=== PATIENT | female | born 1945 | race Caucasian/White ===

== ENCOUNTER 2022-11-06 19:07 | Emergency (ER) | payer MEDICARE, OTHER ==
[2022-11-06 20:04] VITALS: RESP 17
[2022-11-06 21:05] VITALS: BP 154/72; PULSE 66; TEMP 96.2; O2SAT 96
[2022-11-06 21:18] LABS: Appearance Clear (Clear); Bacteria None Seen /HPF (None Seen); Bilirubin Negative (Negative); Blood Negative (Negative); Epithelial Cells None Seen /HPF (None Seen); Glucose, Urine Negative (Negative); Hyaline Casts NONE SEEN /LPF (0-2); Ketones Negative (Negative); Leukocyte Esterase Moderate (Negative); Nitrite Negative (Negative); Ph 5.5 (4.6-8.0); Protein,Urine Dip Negative (Negative); Specific Gravity 1.015 (1.005-1.030); Urobilinogen 0.2 mg/dL (0.2)
[2022-11-06 21:19] LABS: ADD URINE CULTURE? YES (NO)
[2022-11-06] MEDS ORDERED: KEFLEX 500 MG PO ONE (21:30)
--- NOTE | 2022-11-06 21:35 | ERPHSYRPT ---
- History of Present Illness Time Seen by Provider: 11/06/22 19:14 Source: patient Exam Limitations: no limitations Patient Subjective Stated Complaint: pt states she is concerned that she may have a yeast infection. she has buring and itching of vaginal area and swelling. Triage Nursing Assessment: pt states she has been having vaginal itching and buringing. buringin pain with urination and swelling in vaginal area. respirations nonlabored. skin warm and dry. pt ambualtes into roomw ith steady gait noted. Physician History: 77 years old female with history of hypertension presented to the ER with 1 week history of progressively increasing burning with urination and irritation of the vulvar skin. Patient reports it pfeiffer when touches the skin around. She was seen outpatient and has negative candidal swab. Patient denies any fever or chills. No suprapubic pain. Does report mild increased urinary frequency. No flank pain. Timing/Duration: week(s) (1), constant, gradual onset, worse Quality: burning, sharpness Onset Location: vaginal, vulvar pain Pain Radiation: none Severity of Pain-Max: moderate Severity of Pain-Current: mild Sexual intercourse history: non-contributory Modifying Factors: Worsens With: urinating Allergies/Adverse Reactions: fluconazole [From Diflucan] Allergy (Intermediate, Verified 11/06/22 19:47) Rash Home Medications: Amlodipine Besylate 5 mg [Norvasc 5 mg] 5 mg PO DAILY 11/06/22 [History] Losartan Potassium 50 mg [Cozaar 50 MG] 50 mg PO DAILY 11/06/22 [History] Hx Tetanus, Diphtheria Vaccination/Date Given: No (2009) Hx Influenza Vaccination/Date Given: Yes Hx Pneumococcal Vaccination/Date Given: No Travel Risk - International Travel Have you traveled outside of the country in past 3 weeks: No - Coronavirus Screening Are you exhibiting any of the following symptoms?: No Close contact with a COVID-19 positive Pt in past 14-21 Days: No - Vaccine Status Have you recieved a Covid-19 vaccination: Yes [employer]: Moderna - Vaccination Dates Date of 2cond Vaccination (if applicable): 2020 - Review of Systems Constitutional: No Symptoms Ears, Nose, & Throat: No Symptoms Respiratory: No Symptoms Cardiac: No Symptoms Abdominal/Gastrointestinal: No Symptoms Genitourinary Symptoms: Dysuria, Frequency, Vaginal Itching Musculoskeletal: No Symptoms Neurological: No Symptoms Hematologic/Lymphatic: No Symptoms Immunological/Allergic: No Symptoms - Past Medical History Cardiac History: Hypertension - Past Surgical History Past Surgical History: No - Social History Smoking Status: Former smoker Exposure to second hand smoke: No Drug Use: none Patient Lives Alone: Yes - Nursing Vital Signs Nursing Vital Signs: Initial Vital Signs Temperature 98.7 F 11/06/22 19:29 Respiratory Rate 16 11/06/22 19:29 Blood Pressure 167/74 11/06/22 19:29 O2 Sat by Pulse Oximetry 96 11/06/22 19:29 Pain Scale Pain Intensity 0 - Physical Exam General Appearance: no apparent distress, alert Eye Exam: PERRL/EOMI Ears, Nose, Throat Exam: normal ENT inspection Neck Exam: normal inspection, full range of motion Respiratory Exam: normal breath sounds, lungs clear Cardiovascular Exam: regular rate/rhythm, normal heart sounds Gastrointestinal/Abdomen Exam: soft, normal bowel sounds, No tenderness Pelvic Exam: other (Inflamed vulvar skin with few scattered beefy red spots on the left side. Mild tenderness to touch.) Extremity Exam: normal inspection Neurologic Exam: alert, oriented x 3, cooperative Skin Exam: normal color SpO2 Interpretation: normal SpO2: 96 O2 Delivery: Room Air Ordered Tests: Active Orders 24 hr Category Date Time Status CULTURE,URINE Stat Lab 11/06/22 19:55 Received UA W/RFX UR CULTURE Stat Lab 11/06/22 19:55 Completed Medication Summary Generic Name Dose Route Start Last Admin Trade Name Freq PRN Reason Stop Dose Admin Cephalexin HCl 500 mg 11/06/22 21:30 Cephalexin 500 Mg Capsule PO 11/06/22 21:31 STAT ONE Nystatin/Triamcinolone Acetonide 30 gm 11/06/22 22:00 Nystatin/Triamcin 15 Gm Oint TP 12/06/22 21:59 BID [facility] Triamcinolone Acetonide 15 gm 11/06/22 22:00 Triamcinolone Acetonide 0.1% 15 Gm Cream TP 12/06/22 21:59 BID [facility] Lab/Rad Data: Laboratory Results 11/06/22 Range/Units 19:55 Urine Color Yellow (Yellow) Urine Appearance Clear (Clear) Urine pH 5.5 (4.6-8.0) Ur Specific [place] 1.015 (1.005-1.030) Urine Protein Negative (Negative) Urine Glucose (UA) Negative (Negative) mg/dL Urine Ketones Negative (Negative) Urine Blood Negative (Negative) Urine Nitrite Negative (Negative) Urine Bilirubin Negative (Negative) Urine Urobilinogen 0.2 (0.2) mg/dL Ur Leukocyte Esterase Moderate A (Negative) U Hyaline Cast (Auto) NONE SEEN (0-2) /LPF Urine Microscopic RBC 11-20 A (0-5) /HPF Urine Microscopic WBC 6-10 A (0-5) /HPF Ur Epithelial Cells None Seen (None Seen) /HPF Urine Bacteria None Seen (None Seen) /HPF Urine Culture Reflexed YES (NO) - Progress Progress: unchanged Air Movement: good Progress Note: 11/06/22 21:34 77 years old female with history of hypertension presented to the ER with 1 week history of progressively increasing burning with urination and irritation of the vulvar skin. Patient reports it pfeiffer when touches the skin around. She was seen outpatient and has negative candidal swab. Patient denies any fever or chills. No suprapubic pain. Does report mild increased urinary frequency. No flank pain. I believe patient has more pain secondary to raw skin. I think it started as intertrigo with some secondary bacterial infection as well. I would treat her with oral antibiotics Keflex along with triamcinolone/nystatin ointment. Recommended to keep the area clean and dry. She does have UTI and Keflex would cover for it. Recommended outpatient follow-up. Blood Culture(s) Obtained: No Antibiotics given: Yes Counseled pt/family regarding: lab results, diagnosis, need for follow-up Medical Desision Making - Risk of complications The pt has a mod risk of morbidity or mortality based on: Need for prescription drug management - Departure Departure Disposition: Home Clinical Impression: Acute UTI, Swelling of vulva Condition: Stable Critical Care Time: No Referrals: OTTONIEL GUPTA MD [Primary Care Provider] - Follow up with PCP 1 day Instructions: Urinary Tract Infection, Adult (DC) Additional Instructions: Take Tylenol as needed for pain. Keep the area clean and dry. Apply nystatin/times and along the ointment twice a day. Follow-up with primary care for reevaluation. Return to ER for any worsening. Prescriptions: Cephalexin Mh 500 mg [Keflex 500 mg] 500 mg PO TID #21 cap
[2022-11-06] MEDS ORDERED: [UNRECOGNIZED DRUG - OTHER] TP SCH (22:00)
[2022-11-06] MEDS ORDERED: KENALOG 0.1% CREAM 15 GM TP SCH (22:00)
[2022-11-06] MEDS ORDERED: KEFLEX 500 MG ONE (22:02)
== END 2022-11-06 22:19 | disposition home or self-care (01) ==
LOC: ED 19:07
DX: N39.0 Urinary tract infection, site not specified (principal); N76.2 Acute vulvitis; R30.0 Dysuria; I10 Essential (primary) hypertension; Z79.899 Other long term (current) drug therapy
CPT/HCPCS: 81001; 87077; 87086; 87186; 99283; A9270-GY

== ENCOUNTER 2022-11-08 10:28 | Inpatient (IN) | payer MEDICARE, OTHER ==
--- NOTE | 2022-11-08 10:59 | ERPHSYRPT ---
- History of Present Illness Time Seen by Provider: 11/08/22 10:45 Source: patient Exam Limitations: no limitations Patient Subjective Stated Complaint: C/O rash with itching to silvia area that started last Thursday and has been progressively getting worse Triage Nursing Assessment: Patient ambulated back to ER without difficulties. She is alert and oriented. No SOB. Tachycardic. Denies pain. Does not appear anxious. Red, swollen rash noted to silvia area and lower abdomen. Patient indicates rash itches. Physician History: This is a 77-year-old white female patient of Dr. Gupta who was seen here on 11/07/2022 and treated for urinary tract infection and a yeast infection of the perineal/suprapubic area. Patient was complaining of dysuria, frequency and vaginal itching. Her symptoms were worse despite a prescription for Keflex and topical nystatin and triamcinolone. When she got up this morning she was planning on coming to the emergency department because of the persistent/worsening of her symptoms. In addition to those symptoms this morning she noticed her heart racing. She has no chest pain. She has no shortness of breath. The twelve-lead EKG upon her admission into the emergency department showed heart rate of 141 bpm and read out as atrial fibrillation. However, I am not convinced it is atrial fibrillation but more of a sinus tachycardia. We will work her up for both candidal perineal infection and her tachycardia/atrial fibrillation findings. She has never had anything like this before. She does not see a cognos consultant. She is a former smoker of cigarettes and has a history of hypertension. Timing/Duration: today Severity: mild (To moderate) Modifying Factors: Improves With: nothing Associated Symptoms: denies symptoms, other (Does sense palpitations) Allergies/Adverse Reactions: fluconazole [From Diflucan] Allergy (Intermediate, Verified 11/08/22 10:34) Rash Home Medications: Amlodipine Besylate 5 mg [Norvasc 5 mg] 5 mg PO DAILY 11/06/22 [History] Losartan Potassium 50 mg [Cozaar 50 MG] 50 mg PO DAILY 11/06/22 [History] Hx Tetanus, Diphtheria Vaccination/Date Given: Yes Hx Influenza Vaccination/Date Given: Yes Hx Pneumococcal Vaccination/Date Given: No Immunizations Up to Date: Yes Travel Risk - International Travel Have you traveled outside of the country in past 3 weeks: No - Coronavirus Screening Are you exhibiting any of the following symptoms?: No Close contact with a COVID-19 positive Pt in past 14-21 Days: No - Vaccine Status Have you recieved a Covid-19 vaccination: Yes [employer]: Moderna - Vaccination Dates Date of 2cond Vaccination (if applicable): 2020 - Review of Systems Constitutional: No Symptoms Eyes: No Symptoms Ears, Nose, & Throat: No Symptoms Respiratory: No Symptoms Cardiac: Palpitations Abdominal/Gastrointestinal: No Symptoms Genitourinary Symptoms: No Symptoms Musculoskeletal: No Symptoms Skin: Rash (Pubic/perineal region) Neurological: No Symptoms Psychological: Anxiety Endocrine: No Symptoms Hematologic/Lymphatic: No Symptoms Immunological/Allergic: No Symptoms All Other Systems: Reviewed and Negative - Past Medical History Pertinent Past Medical History: Yes Cardiac History: Hypertension - Past Surgical History Past Surgical History: No - Social History Smoking Status: Former smoker Exposure to second hand smoke: No Drug Use: none Patient Lives Alone: Yes - Nursing Vital Signs Nursing Vital Signs: Initial Vital Signs Temperature 97.7 F 11/08/22 10:35 Pulse Rate 114 H 11/08/22 10:35 Respiratory Rate 18 11/08/22 10:35 Blood Pressure 153/118 11/08/22 10:35 O2 Sat by Pulse Oximetry 97 11/08/22 10:35 Pain Scale Pain Intensity 0 - Physical Exam General Appearance: no apparent distress, alert, anxiety, obese Eye Exam: PERRL/EOMI, eyes nml inspection Ears, Nose, Throat Exam: normal ENT inspection, moist mucous membranes Neck Exam: normal inspection, non-tender, supple, full range of motion Respiratory Exam: normal breath sounds, lungs clear, No chest tenderness, No respiratory distress Cardiovascular Exam: regular rate/rhythm, normal heart sounds, normal peripheral pulses Pelvic Exam: not done Rectal Exam: not done Back Exam: normal inspection, normal range of motion, No CVA tenderness, No vertebral tenderness Extremity Exam: normal inspection, normal range of motion, pelvis stable Neurologic Exam: alert, oriented x 3, cooperative, 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 Outer vaginal area and perineal area) Lymphatic Exam: No adenopathy SpO2 Interpretation: normal SpO2: 97 O2 Delivery: Room Air - Course Nursing assessment & vital signs reviewed: Yes EKG Interpreted by Me: RATE (141), Sinus Tach, NORMAL AXIS, NORMAL INTERVALS, NORMAL QRS, Other (The computer readout states that the patient has atrial fibrillation. I am not convinced it is atrial fibrillation but more of a sinus tachycardia. There is no evidence of any acute ischemic changes on today's twelve-lead EKG.) Ordered Tests: Active Orders 24 hr Category Date Time Status EKG-ER Only STAT Care 11/08/22 11:01 Active IV Insertion STAT Care 11/08/22 11:01 Active IV Insertion-2nd Peripheral STAT Care 11/08/22 13:19 Active Pulse Oximetry (ED) STAT Care 11/08/22 11:01 Active CHEST WITH CONTRAST [CT] Stat Exams 11/08/22 11:42 Completed CBC W DIFF Stat Lab 11/08/22 11:09 Completed CMP Stat Lab 11/08/22 11:09 Completed D-DIMER QUANTITATIVE Stat Lab 11/08/22 11:09 Completed MAGNESIUM Stat Lab 11/08/22 11:09 Completed NT PRO BNPII Stat Lab 11/08/22 11:09 Completed TROPONIN Q4H Lab 11/08/22 11:09 Completed TROPONIN Q4H Lab 11/08/22 15:15 Ordered TROPONIN Q4H Lab 11/08/22 19:15 Ordered UA W/RFX UR CULTURE Stat Lab 11/08/22 Completed Transfer Order Routine Transfer 11/08/22 Ordered Medication Summary Generic Name Dose Route Start Last Admin Trade Name Freq PRN Reason Stop Dose Admin Diltiazem HCl 100 mls @ 5 mls/hr 11/08/22 13:03 11/08/22 13:07 Cardizem Drip 100 Mg/100 Ml D5w IV 12/08/22 13:02 5 mg/hr .Q20H PRN 5 mls/hr HEART RATE/ A-FIB Administration Protocol 5 MG/HR Discontinued Medications Generic Name Dose Route Start Last Admin Trade Name Freq PRN Reason Stop Dose Admin Diltiazem HCl 15 mg 11/08/22 11:01 11/08/22 11:07 Diltiazem Hcl Iv 5 Mg/Ml Vial IV 11/08/22 11:02 15 mg STAT ONE Administration Diltiazem HCl Confirm 11/08/22 11:06 Diltiazem Hcl Iv 5 Mg/Ml Vial Administered 11/08/22 11:07 Dose 50 mg IV .STK-MED ONE Sodium Chloride 500 mls @ 500 mls/hr 11/08/22 11:41 11/08/22 12:54 Sodium Chloride 0.9% 500 Ml IV 11/08/22 12:40 Infused .Q1H ONE Infusion Sodium Chloride Confirm 11/08/22 11:48 Sodium Chloride 0.9% 500 Ml Administered 11/08/22 11:49 Dose 500 mls @ ud IV .STK-MED ONE Nystatin 1 gm 11/08/22 11:04 11/08/22 11:20 Nystatin 15 Gm Powder TP 11/08/22 11:05 1 gm STAT ONE Administration Lab/Rad Data: Laboratory Result Diagrams 11/08/22 11:09 11/08/22 11:09 Laboratory Results 11/08/22 11/08/22 11/08/22 Range/Units Unknown 11:09 11:09 WBC (4.0-10.5) x10^3/uL RBC (4.1-5.4) x10^6/uL Hgb (12.0-16.0) g/dL Hct (35-47) % MCV (78-100) fL MCH (26-32) pg MCHC (32-36) g/dL RDW (11.5-14.0) % Plt Count (150-450) x10^3/uL MPV (7.5-11.0) fL Gran % (36.0-66.0) % Immature Gran % (Auto) (0.00-0.4) % Nucleat RBC Rel Count (0.00-0.1) % Eos # (Auto) (0-0.5) x10^3/uL Immature Gran # (Auto) (0.00-0.03) x10^3u/L Absolute Lymphs (auto) (1.0-4.6) x10^3/uL Absolute Monos (auto) (0.0-1.3) x10^3/uL Absolute Nucleated RBC (0.00-0.01) x10^3u/L Lymphocytes % (24.0-44.0) % Monocytes % (0.0-12.0) % Eosinophils % (0.00-5.0) % Basophils % (0.0-0.4) % Absolute Granulocytes (1.4-6.9) x10^3/uL Basophils # (0-0.4) x10^3/uL D-Dimer (0.0-0.50) mg/L Sodium (137-145) mmol/L Potassium (3.5-5.1) mmol/L Chloride (98-107) mmol/L Carbon Dioxide (22-30) mmol/L Anion Gap (5-15) MEQ/L BUN (7-17) mg/dL Creatinine (0.52-1.04) mg/dL Estimated GFR ML/MIN Glucose (74-106) mg/dL Calcium (8.4-10.2) mg/dL Magnesium (1.6-2.3) mg/dL Total Bilirubin (0.2-1.3) mg/dL AST (14-36) U/L ALT (0-35) U/L Alkaline Phosphatase (38-126) U/L Troponin I < 0.012 (0.000-0.034) ng/mL NT-Pro-B Natriuret Pep 81.8 (<300) pg/mL Serum Total Protein (6.3-8.2) g/dL Albumin (3.5-5.0) g/dL Urine Color Yellow (Yellow) Urine Appearance Cloudy A (Clear) Urine pH 5.5 (4.6-8.0) Ur Specific [place] 1.010 (1.005-1.030) Urine Protein Negative (Negative) Urine Glucose (UA) Negative (Negative) mg/dL Urine Ketones Negative (Negative) Urine Blood Negative (Negative) Urine Nitrite Negative (Negative) Urine Bilirubin Negative (Negative) Urine Urobilinogen 0.2 (0.2) mg/dL Ur Leukocyte Esterase Negative (Negative) U Hyaline Cast (Auto) NONE SEEN (0-2) /LPF Urine Microscopic RBC 0-2 (0-5) /HPF Urine Microscopic WBC 0-2 (0-5) /HPF Ur Epithelial Cells None Seen (None Seen) /HPF Urine Bacteria None Seen (None Seen) /HPF Urine Culture Reflexed NO (NO) 11/08/22 11/08/22 11/08/22 Range/Units 11:09 11:09 11:09 WBC 8.4 (4.0-10.5) x10^3/uL RBC 4.69 (4.1-5.4) x10^6/uL Hgb 13.6 (12.0-16.0) g/dL Hct 41.8 (35-47) % MCV 89.1 (78-100) fL MCH 29.0 (26-32) pg MCHC 32.5 (32-36) g/dL RDW 12.6 (11.5-14.0) % Plt Count 237 (150-450) x10^3/uL MPV 11.4 H (7.5-11.0) fL Gran % 63.1 (36.0-66.0) % Immature Gran % (Auto) 0.2 (0.00-0.4) % Nucleat RBC Rel Count 0.0 (0.00-0.1) % Eos # (Auto) 0.82 H (0-0.5) x10^3/uL Immature Gran # (Auto) 0.02 (0.00-0.03) x10^3u/L Absolute Lymphs (auto) 1.73 (1.0-4.6) x10^3/uL Absolute Monos (auto) 0.47 (0.0-1.3) x10^3/uL Absolute Nucleated RBC 0.00 (0.00-0.01) x10^3u/L Lymphocytes % 20.7 L (24.0-44.0) % Monocytes % 5.6 (0.0-12.0) % Eosinophils % 9.8 H (0.00-5.0) % Basophils % 0.6 (0.0-0.4) % Absolute Granulocytes 5.26 (1.4-6.9) x10^3/uL Basophils # 0.05 (0-0.4) x10^3/uL D-Dimer 2.51 H* (0.0-0.50) mg/L Sodium 141 (137-145) mmol/L Potassium 3.7 (3.5-5.1) mmol/L Chloride 107 (98-107) mmol/L Carbon Dioxide 21 L (22-30) mmol/L Anion Gap 16.1 H (5-15) MEQ/L BUN 15 (7-17) mg/dL Creatinine 0.71 (0.52-1.04) mg/dL Estimated GFR > 60.0 ML/MIN Glucose 118 H (74-106) mg/dL Calcium 9.0 (8.4-10.2) mg/dL Magnesium 2.3 (1.6-2.3) mg/dL Total Bilirubin 0.50 (0.2-1.3) mg/dL AST 22 (14-36) U/L ALT 19 (0-35) U/L Alkaline Phosphatase 91 (38-126) U/L Troponin I (0.000-0.034) ng/mL NT-Pro-B Natriuret Pep (<300) pg/mL Serum Total Protein 7.8 (6.3-8.2) g/dL Albumin 4.4 (3.5-5.0) g/dL Urine Color (Yellow) Urine Appearance (Clear) Urine pH (4.6-8.0) Ur Specific [place] (1.005-1.030) Urine Protein (Negative) Urine Glucose (UA) (Negative) mg/dL Urine Ketones (Negative) Urine Blood (Negative) Urine Nitrite (Negative) Urine Bilirubin (Negative) Urine Urobilinogen (0.2) mg/dL Ur Leukocyte Esterase (Negative) U Hyaline Cast (Auto) (0-2) /LPF Urine Microscopic RBC (0-5) /HPF Urine Microscopic WBC (0-5) /HPF Ur Epithelial Cells (None Seen) /HPF Urine Bacteria (None Seen) /HPF Urine Culture Reflexed (NO) - Progress Progress: improved Progress Note: 11/08/22 13:23 The patient's initial twelve-lead EKG showed atrial fibrillation with RVR. This is new onset for the patient. Initially, I felt the patient had more of a sinus tachycardia. We did provide the patient with 15 mg of Cardizem intravenously. This lowered the patient's heart rate down to the low 100s. After the initial response of the single bolus of Cardizem, the heart rate then started to increase slowly. We repeated the twelve-lead EKG and it did in fact show atrial fibrillation with a heart rate of 128 bpm. There is borderline left axis deviation without evidence of acute ischemic changes. 11/08/22 13:27 This patient's medical issue is 1 of high complexity. Level of complexity and the work-up performed is based on review of the patient's past medical history, review of the patient's medication list, review of the patient's drug allergy list, history present illness and physical findings on examination. The work-up in this patient includes a twelve-lead EKG, CBC, CMP, troponin level and D-dimer level as well as a urinalysis. We needed to slow the heart rate down initially so an intravenous line was placed and Cardizem 15 mg bolus was used to slow her rate. Her heart rate dropped to the low 100s. Her blood pressure maintained in a reasonable range. With time, the effect of the Cardizem was wearing off and her heart rate increased. A second twelve-lead EKG was performed and it did show in fact, atrial fibrillation with RVR. I reviewed the results of the work-up. The patient had an elevated D-dimer of 2.[address] scan of the chest with contrast was performed. There is no evidence of pulmonary embolus. There is no pulmonary infiltrates or infarcts or pleural effusion present. I will contact the telehospitalist and place this patient on a Cardizem drip. We will anticoagulate her as well. 11/08/22 13:[address] Randall who is the telehospitalist on-call today. I reviewed the patient history and the patient's medication list, drug allergy list and history of present illness. I also reviewed the work-up performed and the results of that work-up. We will admit the patient to ICU and place her on Eliquis as well as Cardizem drip. We will also use the nystatin powder for her vulvovaginitis. 11/08/22 13:48 The patient's third twelve-lead EKG was interpreted by me. The patient has converted into normal sinus rhythm with a heart rate of 99 bpm. There is no evidence of any acute ischemic changes. There are normal intervals. Counseled pt/family regarding: lab results, diagnosis, rad results Medical Desision Making - Diagnostic Testing Diagnostic test were ordered, analyzed, and reviewed by me: Yes Radiological Interpretation: Reviewed by me, Teleradiologist Report - Risk of complications The pt has a high risk of morbidity or mortality based on: Decision regarding hospitilization or escalation of hosp level of care - Departure Departure Disposition: Home Clinical Impression: Vulvovaginal candidiasis, Atrial fibrillation with RVR Condition: Stable Critical Care Time: Yes Critical Care Time(excluding separately billable procedures): Critical 30-74 mins (45) Referrals: OTTONIEL GUPTA MD [Primary Care Provider] - Follow up/PCP as directed
[2022-11-08] MEDS ORDERED: Cardizem IV 50 MG/10 ML IV ONE ×2 (11:01→11:06)
[2022-11-08] MEDS ORDERED: NYSTOP POWDER 15 GM TP ONE (11:04)
[2022-11-08 11:12] LABS: Absolute Neutrophil Ct (ANC) 5.26 x10^3/uL (1.4-6.9); BASOPHIL % 0.6 % (0.0-0.4); Basophil (Absolute #) 0.05 x10^3/uL (0-0.4); Eosinophil % 9.8 % (0.00-5.0); Eosinophil (Absolute #) 0.82 x10^3/uL (0-0.5); Hematocrit 41.8 % (35-47); Hemoglobin 13.6 g/dL (12.0-16.0); IMMATURE GRAN # 0.02 x10^3u/L (0.00-0.03); IMMATURE GRAN % 0.2 % (0.00-0.4); Lymphocyte (Absolute #) 1.73 x10^3/uL (1.0-4.6); Lymphocytes % 20.7 % (24.0-44.0); Mean Cell Volume 89.1 fL (78-100); Mean Corpuscular Hgb Concent. 32.5 g/dL (32-36); Mean Platelet Volume 11.4 fL (7.5-11.0); Monocyte (Absolute #) 0.47 x10^3/uL (0.0-1.3); Monocytes % 5.6 % (0.0-12.0); Neutrophil % 63.1 % (36.0-66.0); Platelet Count 237 x10^3/uL (150-450); Red Blood Count 4.69 x10^6/uL (4.1-5.4); Red Cell Distribution Width 12.6 % (11.5-14.0); White Blood Count 8.4 x10^3/uL (4.0-10.5)
[2022-11-08 11:26] LABS: ALBUMIN 4.4 g/dL (3.5-5.0); ALKALINE PHOSPHATASE 91 U/L (38-126); ANION GAP 16.1 MEQ/L (5-15); BLOOD UREA NITROGEN 15 mg/dL (7-17); CHLORIDE 107 mmol/L (98-107); Carbon Dioxide 21 mmol/L (22-30); Creatinine 1 0.71 mg/dL (0.52-1.04); EST GLOMERULAR FILTRATION RATE > 60.0 ML/MIN; Glucose 118 mg/dL (74-106); MAGNESIUM 2.3 mg/dL (1.6-2.3); Potassium 3.7 mmol/L (3.5-5.1); SGOT/AST 22 U/L (14-36); SGPT/ALT 19 U/L (0-35); SODIUM 141 mmol/L (137-145); Total Protein 7.8 g/dL (6.3-8.2)
[2022-11-08] MEDS ORDERED: Sodium Chloride 0.9% 500 ML 500 ML IV ONE ×2 (11:41→11:48)
[2022-11-08 12:23] LABS: Appearance Cloudy (Clear); Bacteria None Seen /HPF (None Seen); Bilirubin Negative (Negative); Blood Negative (Negative); Epithelial Cells None Seen /HPF (None Seen); Glucose, Urine Negative (Negative); Hyaline Casts NONE SEEN /LPF (0-2); Ketones Negative (Negative); Leukocyte Esterase Negative (Negative); Nitrite Negative (Negative); Ph 5.5 (4.6-8.0); Protein,Urine Dip Negative (Negative); Urobilinogen 0.2 mg/dL (0.2); WBC 0-2 /HPF (0-5)
[2022-11-08 12:24] LABS: RBC 0-2 /HPF (0-5)
[2022-11-08 12:33] LABS: ADD URINE CULTURE? NO (NO)
[2022-11-08] MEDS ORDERED: CARDIZEM DRIP 100 MG/100 ML D5W 100 ML IV PRN (13:03)
--- NOTE | 2022-11-08 13:18 | XRAY ---
CLINICAL HISTORY:Chest pain; elevated D-dimer COMPARISON:None. TECHNIQUE:Contiguous, multislice, post intravenous contrast [80 cc of Isovue-370] CT scan of the chest was performed in the axial plane in mediastinal and lung windows with multiplanar reconstructions. FINDINGS: The main pulmonary segment, right and left main branches show normal diameter and homogeneous contrast enhancement with no evidence of pulmonary embolism or thrombosis. Normal contrast opacification of proximal and visualized distal branches of lobar pulmonary arteries. No pulmonary infarcts or pleural collection. No evidence of pulmonary infiltrations. No suspicious pulmonary mass or cavitary lung lesions. Coarse markings in the right apical region are indicative of scarring. Atelectatic changes were seen in the right upper and both lower lobes. No enlarged hilar or mediastinal lymphadenopathy. Normal cardiac size. The chest wall has no cystic or solid masses. Multilevel spondylodegenerative changes in the visualized spine. Osteopenic bones. Visualized sections of the upper abdomen show cystic lesions in the visualized right lobe of the liver, largest lesion measuring about 8.9X 6.1 cm can be hepatic cysts, ultrasound follow up suggested. Multiple calcific densities in the spleen represent calcified granulomas. Sliding hiatal hernia.Small left renal cyst measuring about 5X 9 mm IMPRESSION: 1. Unremarkable CT angiography with no definite pulmonary embolism. 2. Posterobasal mild atelectatic changes but no indra signs of pulmonary infarcts or pleural collection. 3. Rest of the findings as detailed above. Electronically Signed by: Stephen Valenzuela MD. (11/08/2022 12:17:29 ROLL FORMER)
[2022-11-08] MEDS ORDERED: ELIQUIS 2.5 MG TABLET PO ONE (13:48)
[2022-11-08] MEDS ORDERED: Zofran 4 MG/2 ML VIAL IV PRN (14:13)
[2022-11-08] MEDS ORDERED: Sodium Chloride 0.9% 1000 ML 1,000 ML IV SCH (14:13)
[2022-11-08] MEDS ORDERED: TYLENOL 325 MG PO PRN (14:13)
[2022-11-08 14:55] VITALS: TEMP 98.7
[2022-11-08] MEDS: ELIQUIS 2.5 MG TABLET PO SCH (21:50)
[2022-11-08] MEDS: NYSTOP POWDER 15 GM TP SCH (21:51)
[2022-11-08 23:08] VITALS: BP 123/64
[2022-11-09 03:29] VITALS: RESP 17; O2SAT 97
[2022-11-09 06:48] LABS: Absolute Neutrophil Ct (ANC) 4.31 x10^3/uL (1.4-6.9); BASOPHIL % 0.3 % (0.0-0.4); Basophil (Absolute #) 0.02 x10^3/uL (0-0.4); Eosinophil % 11.7 % (0.00-5.0); Eosinophil (Absolute #) 0.86 x10^3/uL (0-0.5); Hematocrit 39.5 % (35-47); Hemoglobin 12.8 g/dL (12.0-16.0); IMMATURE GRAN # 0.03 x10^3u/L (0.00-0.03); IMMATURE GRAN % 0.4 % (0.00-0.4); Lymphocytes % 21.7 % (24.0-44.0); Mean Cell Volume 88.6 fL (78-100); Mean Corpuscular Hemoglobin 28.7 pg (26-32); Mean Corpuscular Hgb Concent. 32.4 g/dL (32-36); Mean Platelet Volume 11.5 fL (7.5-11.0); Monocyte (Absolute #) 0.55 x10^3/uL (0.0-1.3); Monocytes % 7.5 % (0.0-12.0); Neutrophil % 58.4 % (36.0-66.0); Platelet Count 220 x10^3/uL (150-450); Red Blood Count 4.46 x10^6/uL (4.1-5.4); Red Cell Distribution Width 13.1 % (11.5-14.0); White Blood Count 7.4 x10^3/uL (4.0-10.5)
[2022-11-09 07:18] LABS: ALBUMIN 3.9 g/dL (3.5-5.0); ALKALINE PHOSPHATASE 71 U/L (38-126); ANION GAP 11.7 MEQ/L (5-15); BLOOD UREA NITROGEN 15 mg/dL (7-17); CHLORIDE 107 mmol/L (98-107); Calcium 8.5 mg/dL (8.4-10.2); Carbon Dioxide 24 mmol/L (22-30); Creatinine 1 0.69 mg/dL (0.52-1.04); EST GLOMERULAR FILTRATION RATE > 60.0 ML/MIN; Glucose 121 mg/dL (74-106); NT PRO BNPII 162 pg/mL (<300); Potassium 3.5 mmol/L (3.5-5.1); SGOT/AST 19 U/L (14-36); SGPT/ALT 17 U/L (0-35); SODIUM 139 mmol/L (137-145); Total Protein 6.8 g/dL (6.3-8.2)
[2022-11-09] MEDS: ELIQUIS 2.5 MG TABLET PO SCH (09:14)
[2022-11-09] MEDS: NYSTOP POWDER 15 GM TP SCH (09:15)
[2022-11-09] MEDS ORDERED: Cozaar 50 MG PO SCH (10:00)
[2022-11-09] MEDS ORDERED: NORVASC 5 MG PO SCH (10:00)
[2022-11-09 12:37] VITALS: PULSE 74
--- NOTE | 2022-11-10 05:29 | PCM.HP ---
History of Present Illness - Chief Complaint Chief Complaint: A - fib Date: 11/08/22 History of Present Illness: is a 77 year old female. Prsents with ongoing vulvovaginitis with fungal infection which is currently being treated with topical nystatin. However; now presents with AF with RVR. Started on dilt gtt in the ED, by the time patient came to floor she reverted to NSR. Now asymptomatic. She wants to go home. Was started on nystatin powder in the ED. No prior cardiac history; only HTN. Discussed need for stroke prophylaxis with NOAC; Patient is amenable. No history of falls. Or bleeding problems. - Review of Systems Eyes: No Symptoms Ears, Nose, & Throat: No Symptoms Respiratory: No Symptoms Cardiac: No Symptoms Abdominal/Gastrointestinal: No Symptoms Musculoskeletal: No Symptoms Skin: No Symptoms Neurological: No Symptoms Psychological: No Symptoms Medications & Allergies Home Medications: Home Medication List Amlodipine Besylate 5 mg [Norvasc 5 mg] 5 mg PO DAILY 11/06/22 [History Confirmed 11/08/22] Losartan Potassium 50 mg [Cozaar 50 MG] 50 mg PO DAILY 11/06/22 [History Confirmed 11/08/22] Apixaban [Eliquis] 5 mg PO BID 30 Days #60 tablet 11/09/22 [Rx] Nystatin Powder 15 gm [Nystop Powder 15 gm] 1 gm TP BID #1 unit 11/09/22 [Rx] Allergies/Adverse Reactions: Allergies Allergy/AdvReac Type Severity Reaction Status Date / Time fluconazole [From Diflucan] Allergy Intermediate Rash Verified 11/08/22 10:34 - Past Medical History Past Medical History: Yes Neurological History: No Pertinent History ENT History: No Pertinent History Cardiac History: Hypertension Respiratory History: No Pertinent History Endocrine Medical History: No Pertinent History Musculoskelatal History: Arthritis GI Medical History: No Pertinent History History: No Pertinent History Pyscho-Social History: No Pertinent History Reproductive Disorders: No Pertinent History - Female History Are you now?: No - Past Surgical History Past Surgical History: No - Social History Smoking Status: Former smoker How long have you smoked: 20 Exposure to second hand smoke: No Alcohol: None Drug Use: none - Physical Exam Vital Signs: Vital Signs - 24 hr Pulse 11/09/22 12:00 74 11/09/22 08:00 60 General Appearance: no apparent distress Neurologic Exam: alert, oriented x 3, cooperative Neck Exam: normal inspection Respiratory Exam: normal breath sounds Cardiovascular Exam: regular rate/rhythm, normal heart sounds Gastrointestinal/Abdomen Exam: soft, normal bowel sounds Extremity Exam: normal inspection Results - Labs Lab/Micro Results: Lab Results-Last 24 Hours 11/09/22 11/09/22 Range/Units 06:00 06:00 WBC 7.4 (4.0-10.5) x10^3/uL RBC 4.46 (4.1-5.4) x10^6/uL Hgb 12.8 (12.0-16.0) g/dL Hct 39.5 (35-47) % MCV 88.6 (78-100) fL MCH 28.7 (26-32) pg MCHC 32.4 (32-36) g/dL RDW 13.1 (11.5-14.0) % Plt Count 220 (150-450) x10^3/uL MPV 11.5 H (7.5-11.0) fL Gran % 58.4 (36.0-66.0) % Immature Gran % (Auto) 0.4 (0.00-0.4) % Nucleat RBC Rel Count 0.0 (0.00-0.1) % Eos # (Auto) 0.86 H (0-0.5) x10^3/uL Immature Gran # (Auto) 0.03 (0.00-0.03) x10^3u/L Absolute Lymphs (auto) 1.60 (1.0-4.6) x10^3/uL Absolute Monos (auto) 0.55 (0.0-1.3) x10^3/uL Absolute Nucleated RBC 0.00 (0.00-0.01) x10^3u/L Lymphocytes % 21.7 L (24.0-44.0) % Monocytes % 7.5 (0.0-12.0) % Eosinophils % 11.7 H (0.00-5.0) % Basophils % 0.3 (0.0-0.4) % Absolute Granulocytes 4.31 (1.4-6.9) x10^3/uL Basophils # 0.02 (0-0.4) x10^3/uL Sodium 139 (137-145) mmol/L Potassium 3.5 (3.5-5.1) mmol/L Chloride 107 (98-107) mmol/L Carbon Dioxide 24 (22-30) mmol/L Anion Gap 11.7 (5-15) MEQ/L BUN 15 (7-17) mg/dL Creatinine 0.69 (0.52-1.04) mg/dL Estimated GFR > 60.0 ML/MIN Glucose 121 H (74-106) mg/dL Calcium 8.5 (8.4-10.2) mg/dL Total Bilirubin 0.50 (0.2-1.3) mg/dL AST 19 (14-36) U/L ALT 17 (0-35) U/L Alkaline Phosphatase 71 (38-126) U/L NT-Pro-B Natriuret Pep 162 (<300) pg/mL Serum Total Protein 6.8 (6.3-8.2) g/dL Albumin 3.9 (3.5-5.0) g/dL - Radiology Impressions Radiology Exams & Impressions: Radiology Procedures Category Date Time Status CHEST WITH CONTRAST [CT] Stat Exams 11/08/22 11:42 Completed Assessment/Plan (1) Acute UTI Status: Acute Assessment & Plan: REsolved on UA Code(s): N39.0 - URINARY TRACT INFECTION, SITE NOT SPECIFIED (2) Atrial fibrillation with RVR Status: Acute Assessment & Plan: Back in NSR, will start NOAC with apixaban 5 BID for eelvated [id number] score; eder need echo and TSH testing and follow up with cardiology Code(s): I48.91 - UNSPECIFIED ATRIAL FIBRILLATION (3) Vulvovaginal candidiasis Status: Acute Assessment & Plan: Nystatin powder Code(s): B37.31 - ACUTE CANDIDIASIS OF VULVA AND VAGINA Telemedicine Encounter - Telemedicine Encounter Telemedicine Encounter: The entirety of this encounter was performed via Telemedicine"
--- NOTE | 2022-11-10 05:31 | PCM.DS ---
Discharge Summary Date of Admission: 11/08/22 14:08 Date of Discharge: 09 November 2022 Admitting Physician: SABIHA GREENWOOD MD Primary Care Provider: OTTONIEL GUPTA JOSE GUADALUPE Allergies Allergies fluconazole [From Diflucan] Allergy (Intermediate, Verified 11/08/22 10:34) Rash Hospital Summary - Hospital Course Hospital Course: No AF recurrence; vulvovaginitis i,proved with nystatin powder - Vitals & Intake/Output Vital Signs: Vital Signs Temperature 98.7 F 11/08/22 14:24 Pulse Rate 74 11/09/22 12:00 Respiratory Rate 17 11/08/22 23:05 Blood Pressure 123/64 11/08/22 23:05 O2 Sat by Pulse Oximetry 97 11/08/22 23:05 Intake & Output: Intake & Output 11/07/22 11/08/22 11/09/22 11/10/22 11:59 11:59 11:59 11:59 Intake Total 360 Balance 360 Weight 70.307 kg 71.9 kg - Lab Result Diagrams: 11/09/22 06:00 11/09/22 06:00 Lab Results-Last 24 Hrs: Lab Results-Last 24 Hours 11/09/22 11/09/22 Range/Units 06:00 06:00 WBC 7.4 (4.0-10.5) x10^3/uL RBC 4.46 (4.1-5.4) x10^6/uL Hgb 12.8 (12.0-16.0) g/dL Hct 39.5 (35-47) % MCV 88.6 (78-100) fL MCH 28.7 (26-32) pg MCHC 32.4 (32-36) g/dL RDW 13.1 (11.5-14.0) % Plt Count 220 (150-450) x10^3/uL MPV 11.5 H (7.5-11.0) fL Gran % 58.4 (36.0-66.0) % Immature Gran % (Auto) 0.4 (0.00-0.4) % Nucleat RBC Rel Count 0.0 (0.00-0.1) % Eos # (Auto) 0.86 H (0-0.5) x10^3/uL Immature Gran # (Auto) 0.03 (0.00-0.03) x10^3u/L Absolute Lymphs (auto) 1.60 (1.0-4.6) x10^3/uL Absolute Monos (auto) 0.55 (0.0-1.3) x10^3/uL Absolute Nucleated RBC 0.00 (0.00-0.01) x10^3u/L Lymphocytes % 21.7 L (24.0-44.0) % Monocytes % 7.5 (0.0-12.0) % Eosinophils % 11.7 H (0.00-5.0) % Basophils % 0.3 (0.0-0.4) % Absolute Granulocytes 4.31 (1.4-6.9) x10^3/uL Basophils # 0.02 (0-0.4) x10^3/uL Sodium 139 (137-145) mmol/L Potassium 3.5 (3.5-5.1) mmol/L Chloride 107 (98-107) mmol/L Carbon Dioxide 24 (22-30) mmol/L Anion Gap 11.7 (5-15) MEQ/L BUN 15 (7-17) mg/dL Creatinine 0.69 (0.52-1.04) mg/dL Estimated GFR > 60.0 ML/MIN Glucose 121 H (74-106) mg/dL Calcium 8.5 (8.4-10.2) mg/dL Total Bilirubin 0.50 (0.2-1.3) mg/dL AST 19 (14-36) U/L ALT 17 (0-35) U/L Alkaline Phosphatase 71 (38-126) U/L NT-Pro-B Natriuret Pep 162 (<300) pg/mL Serum Total Protein 6.8 (6.3-8.2) g/dL Albumin 3.9 (3.5-5.0) g/dL - Radiology Exams Ordered Rad Exams-Entire Visit: Radiology Procedures Category Date Time Status CHEST WITH CONTRAST [CT] Stat Exams 11/08/22 11:42 Completed - Procedures and Test Procedures and Tests throughout Hospitalization: Therapy Orders & Screens 11/08/22 14:13 EKG REPEAT IN AM Comment: Discharge Exam Neurologic Exam: alert, oriented x 3, cooperative Neck Exam: normal inspection Respiratory Exam: normal breath sounds Cardiovascular Exam: regular rate/rhythm, normal heart sounds Gastrointestinal/Abdomen Exam: soft, normal bowel sounds Final Diagnosis/Problem List - Final Discharge Diagnosis/Problem (1) Acute UTI Status: Acute Assessment & Plan: resolved on UA Code(s): N39.0 - URINARY TRACT INFECTION, SITE NOT SPECIFIED (2) Atrial fibrillation with RVR Status: Acute Assessment & Plan: NOAC for stroke prophylaxis; outpatient referral to cardiology for echo and for TSH testing Code(s): I48.91 - UNSPECIFIED ATRIAL FIBRILLATION (3) Vulvovaginal candidiasis Status: Acute Assessment & Plan: Nystatin poder Code(s): B37.31 - ACUTE CANDIDIASIS OF VULVA AND VAGINA Telemedicine Encounter - Telemedicine Encounter Telemedicine Encounter: The entirety of this encounter was performed via Telemedicine" - Discharge Disposition: Home, Self-Care Condition: Stable Prescriptions: New Apixaban [Eliquis] 5 mg PO BID 30 Days #60 tablet Nystatin Powder 15 gm [Nystop Powder 15 gm] 1 gm TP BID #1 unit Continue Amlodipine Besylate 5 mg [Norvasc 5 mg] 5 mg PO DAILY Losartan Potassium 50 mg [Cozaar 50 MG] 50 mg PO DAILY Instructions: Atrial Fibrillation (DC)
== END 2022-11-09 15:13 | disposition home or self-care (01) | DRG 690 ==
LOC: ED 10:28 → ICU 14:08
PROVIDERS: ADMIT Internal Medicine; ATTEND Internal Medicine
DX: N39.0 Urinary tract infection, site not specified (principal); I48.20 Chronic atrial fibrillation, unspecified; B37.31 Acute candidiasis of vulva and vagina; I10 Essential (primary) hypertension; Z79.899 Other long term (current) drug therapy; Z20.828 Contact with and (suspected) exposure to other viral communicable diseases; Z87.891 Personal history of nicotine dependence
CPT/HCPCS: 36000; 36415; 71260; 80053; 81001; 83735; 83880; 84484; 85025; 85379; 93005; 94760; 96365; 96374; 99285; 99291; J2405; Q3014; A9270-GY

== ENCOUNTER 2023-03-08 13:31 | Emergency (ER) | payer MEDICARE ==
[2023-03-08 13:50] VITALS: PULSE 74; TEMP 97.6
--- NOTE | 2023-03-08 14:02 | ERPHSYRPT ---
- History of Present Illness Time Seen by Provider: 03/08/23 13:58 Source: patient Exam Limitations: no limitations Patient Subjective Stated Complaint: Pt states that she has had a cough for about 4 days and one of the days she had vomiting and diarrhea, pts cough makes her chest hurt, she also c/o of a fever off and on for a few days Triage Nursing Assessment: Pt was brought to the ER by her daughter, vitals wnl, denies pain, pulses normal, skin is clammy but afebrile, nasal drainage, cough, voice is scratchy, walked to the ER room without assistance Physician History: 77 years old female with past medical history of atrial fibrillation currently on Eliquis, hypertension, hyperlipidemia. The patient is presenting to the emergency room complaining of coughing that she has been having since last Thursday almost 7 days from today. She is denying any shortness of breath, with her cough her chest hurts. She has not taken any cough medications because of the interactions with her medications. She has the chills she believes she might be having fever. At 1 time she felt nauseous had vomiting and diarrhea. She did not get her flu vaccine this season because she had cold-like symptoms back then. Her cough is dry/ productive with white sputum. Allergies/Adverse Reactions: fluconazole [From Diflucan] Allergy (Intermediate, Verified 03/08/23 13:50) Rash cephalexin Allergy (Verified 03/08/23 13:54) Home Medications: Amlodipine Besylate 5 mg [Norvasc 5 mg] 5 mg PO DAILY 11/06/22 [History] Losartan Potassium 50 mg [Cozaar 50 MG] 50 mg PO BID 11/06/22 [History] Amiodarone HCl 200 mg PO DAILY 03/08/23 [History] PARoxetine HCL [Paxil] 10 mg PO DAILY 03/08/23 [History] Rosuvastatin Calcium 10 mg PO DAILY 03/08/23 [History] Hx Tetanus, Diphtheria Vaccination/Date Given: Yes Hx Influenza Vaccination/Date Given: Yes (gets but has not had this year) Hx Pneumococcal Vaccination/Date Given: Yes Travel Risk - International Travel Have you traveled outside of the country in past 3 weeks: No - Coronavirus Screening Are you exhibiting any of the following symptoms?: No Close contact with a COVID-19 positive Pt in past 14-21 Days: No - Vaccine Status Have you recieved a Covid-19 vaccination: Yes Behavioral Interventionist: Moderna - Vaccination Dates Date of 2cond Vaccination (if applicable): 2020 - Review of Systems Constitutional: Fever, Chills Eyes: No Symptoms Ears, Nose, & Throat: No Symptoms Respiratory: Cough Cardiac: No Chest Pain, No Edema, No Syncope Abdominal/Gastrointestinal: No Abdominal Pain, No Nausea, No Vomiting, No Diarrhea Genitourinary Symptoms: No Dysuria Musculoskeletal: No Back Pain, No Neck Pain Skin: No Rash Neurological: No Dizziness, No Focal Weakness, No Sensory Changes Psychological: No Symptoms Endocrine: No Symptoms All Other Systems: Reviewed and Negative - Past Medical History Pertinent Past Medical History: Yes Neurological History: No Pertinent History ENT History: No Pertinent History Cardiac History: Hypertension Respiratory History: No Pertinent History Endocrine Medical History: No Pertinent History Musculoskeletal History: Arthritis GI Medical History: No Pertinent History History: No Pertinent History Psycho-Social History: No Pertinent History Female Reproductive Disorders: No Pertinent History - Past Surgical History Past Surgical History: No - Social History Smoking Status: Former smoker How long have you smoked: 20 Exposure to second hand smoke: No (July) Drug Use: none Patient Lives Alone: No - Nursing Vital Signs Nursing Vital Signs: Initial Vital Signs Temperature 97.6 F 03/08/23 13:39 Pulse Rate 74 03/08/23 13:39 Blood Pressure 131/63 03/08/23 13:39 O2 Sat by Pulse Oximetry 95 03/08/23 13:39 Pain Scale Pain Intensity 0 - Physical Exam General Appearance: no apparent distress Eye Exam: PERRL/EOMI, eyes nml inspection Ears, Nose, Throat Exam: normal ENT inspection, TMs normal, pharynx normal, moist mucous membranes Neck Exam: normal inspection, non-tender, supple, full range of motion Respiratory Exam: prolonged expirations, other (Scattered expiratory wheezes at the bases especially right side) Cardiovascular Exam: regular rate/rhythm, normal heart sounds Gastrointestinal/Abdomen Exam: soft, No tenderness Back Exam: normal inspection, No CVA tenderness, No vertebral tenderness Extremity Exam: normal inspection, normal range of motion Neurologic Exam: alert, oriented x 3, cooperative, normal mood/affect, sensation nml, No motor deficits Skin Exam: normal color, warm, dry, No rash Lymphatic Exam: No adenopathy SpO2: 95 - Radiology Exams Chest X-ray Interpretation: Interpreted by me, Reviewed by me, No Pneumonia Ordered Tests: Active Orders 24 hr Category Date Time Status Portable Chest [CHEST 1 VIEW (PORTABLE)] Stat Exams 03/08/23 14:10 Taken Lab/Rad Data: Laboratory Results 03/08/23 Range/Units 14:05 Influenza Type A Ag NEGATIVE (NEGATIVE) Influenza Type B Ag NEGATIVE (NEGATIVE) RSV (PCR) NEGATIVE (NEGATIVE) SARS-CoV-2 (PCR) NEGATIVE (NEGATIVE) - Progress Air Movement: good Progress Note: 03/08/23 14:00 77 years old female with past medical history of atrial fibrillation on Eliquis, hypertension. The patient is presenting to the emergency room complaining of coughing that she has been having for almost 7 days. Possibly fever but chills. No shortness of breath, both sides of the chest hurts with coughing. At present the patient is stable saturating 96% on room air. Her lungs good air exchange bilaterally some scattered wheezes at the bases. Her vitals are normal. Differential diagnoses Community-acquired pneumonia Acute bronchitis COVID-19 pneumonia RSV Influenza A/B. Emergency room course and medical decision making Portable chest x-ray, check COVID-19 antigen, influenza A/B and RSV. 3 PM portable chest x-ray is negative for any infiltrates. Both COVID-19 antigen, influenza AB and RSV are negative. The patient will be discharged home. She will be placed on Z-Evan Mucinex DM tablet twice a day. Follow-up with your family physician in 2 to 3 days. Blood Culture(s) Obtained: No Antibiotics given: Yes - Departure Departure Disposition: Home Clinical Impression: Acute bronchitis Clinical Impression: (Ruled Out): Acute bronchitis and bronchiolitis Condition: Stable Critical Care Time: No Referrals: OTTONIEL GUPTA MD [Primary Care Provider] - Follow up/PCP as directed Instructions: Cough, Adult (DC) Prescriptions: Guaifenesin Dextromethorphan [MUCINEX Dm 600/30MG] 1 tablet PO BID #20 tablet Doxycycline Hyclate 100 mg [Vibramycin 100 MG] 100 mg PO BID #14 tab
[2023-03-08 14:45] VITALS: BP 129/69
[2023-03-08 14:46] LABS: INFLUENZA A NEGATIVE (NEGATIVE); INFLUENZA B NEGATIVE (NEGATIVE); RESPIRATORY SYNCTIAL VIRUS NEGATIVE (NEGATIVE); SARS-CoV-2 Xpert Express NEGATIVE (NEGATIVE)
[2023-03-08 14:55] VITALS: O2SAT 95
--- NOTE | 2023-03-08 21:15 | XRAY ---
Indication: Cough. Comparison: September 21, 2018 Portable chest again hyperinflated and clear. Heart not enlarged. Bony thorax intact again with osteopenia and mild degenerative changes. No new/acute findings.
== END 2023-03-08 15:15 | disposition home or self-care (01) ==
LOC: ED 13:31
DX: J20.9 Acute bronchitis, unspecified (principal); R05.1 Acute cough; I10 Essential (primary) hypertension; E78.5 Hyperlipidemia, unspecified; Z79.01 Long term (current) use of anticoagulants; Z79.899 Other long term (current) drug therapy
CPT/HCPCS: 0241U; 71045; 99282

== ENCOUNTER 2023-12-20 08:18 | Emergency (ER) | payer MEDICARE ==
[2023-12-20 08:40] VITALS: TEMP 98.3
--- NOTE | 2023-12-20 09:56 | ERPHSYRPT ---
- History of Present Illness Time Seen by Provider: 12/20/23 09:17 Source: patient, family (daughter) Exam Limitations: no limitations Patient Subjective Stated Complaint: Cough Triage Nursing Assessment: Patient ambulated back to ED and transferred self to bed. Patient A+O X3. Patient's skin pink, warm and dry. Patient complains of cough productive clear sputum, fever as high as 102.5, sore throat, and body aches since . Lungs noted to be clear a/p kristy. Physician History: Pt has had a productive cough(clear), nausea, body aches, sore throat, right earache, decreased appetite, mild intermittent frontal headache and fever up to 102.5 since 2 days ago. Allergies/Adverse Reactions: fluconazole [From Diflucan] Allergy (Intermediate, Verified 12/20/23 08:30) Rash cephalexin Allergy (Verified 12/20/23 08:30) Home Medications: Losartan Potassium 50 mg [Cozaar 50 MG] 50 mg PO BID 11/06/22 [History] Rosuvastatin Calcium 5 mg PO BID 03/08/23 [History] Metoprolol Tartrate 25 mg [Lopressor 25MG Tab] 1 tab PO DAILY 12/20/23 [History] Spironolactone 25 mg [Aldactone 25 MG] 1 tab PO BID 12/20/23 [History] Ubidecarenone [Coenzyme Q-10] 1 tab PO DAILY 12/20/23 [History] Hx Tetanus, Diphtheria Vaccination/Date Given: Yes Hx Influenza Vaccination/Date Given: Yes (gets but has not had this year) Hx Pneumococcal Vaccination/Date Given: Yes Immunizations Up to Date: Yes Travel Risk - International Travel Have you traveled outside of the country in past 3 weeks: No - Emerging Infectious Disease Are you exhibiting symptoms associated with any current EIDs: No - Review of Systems Constitutional: Fever Ears, Nose, & Throat: Ear Pain, Throat Pain Respiratory: Cough, Dyspnea on Exertion (ZAMORANO) (since 2 days ago) Cardiac: No Chest Pain Abdominal/Gastrointestinal: Nausea, Appetite Changes (decreased), No Abdominal Pain, No Vomiting Musculoskeletal: Arthralgias Neurological: Headache - Past Medical History Pertinent Past Medical History: Yes Neurological History: No Pertinent History ENT History: No Pertinent History Cardiac History: Arrhythmia, High Cholesterol, Hypertension Respiratory History: No Pertinent History Endocrine Medical History: No Pertinent History Musculoskeletal History: Arthritis GI Medical History: No Pertinent History History: No Pertinent History Psycho-Social History: No Pertinent History Female Reproductive Disorders: No Pertinent History - Past Surgical History Past Surgical History: No - Social History Smoking Status: Former smoker How long have you smoked: 20 Exposure to second hand smoke: No Drug Use: none Patient Lives Alone: No - Social Determinants of Health Will the patient participate in the screening: Yes Do you worry about a steady place to live?: No Do you have any problems with any of the following?: No known problems In the past 12 months,have you had to go without utilities?: No Transportation Issues: No Has anyone in your support network made you feel unsafe?: No Have you or anyone in your house had to go without enough: No - Nursing Vital Signs Nursing Vital Signs: Initial Vital Signs Temperature 98.3 F 12/20/23 08:30 Pulse Rate 77 12/20/23 08:30 Respiratory Rate 20 12/20/23 08:30 Blood Pressure 144/86 12/20/23 08:30 O2 Sat by Pulse Oximetry 96 12/20/23 08:30 Pain Scale Pain Intensity 5 - Physical Exam General Appearance: alert Eye Exam: PERRL/EOMI ENT Exam: TMs normal, pharyngeal erythema Neck Exam: normal inspection Respiratory Exam: crackles/rales (Mild creps over right posterior base.) Cardiovascular/Chest Exam: normal heart sounds Gastrointestinal/Abdominal Exam: normal bowel sounds Extremity Exam: No pedal edema Neurologic Exam: alert, cooperative Skin Exam: warm, dry SpO2 Interpretation: normal SpO2: 96 O2 Delivery: Room Air - Course Nursing assessment & vital signs reviewed: Yes EKG Interpreted by Me: RATE (71), Sinus Rhythm, Left [place] Deviation, Other (QTc = 467) - CT Exams Chest CT Interpretation: Tele-radiologist Report (See report.) Ordered Tests: Active Orders 24 hr Category Date Time Status Client Engagement Manager STAT Care 12/20/23 10:07 Active EKG-ER Only STAT Care 12/20/23 10:05 Active IV Insertion STAT Care 12/20/23 10:05 Active Pulse Oximetry (ED) STAT Care 12/20/23 10:06 Active CHEST WITH CONTRAST [CT] Stat Exams 12/20/23 10:18 Completed AMYLASE Stat Lab 12/20/23 10:48 Completed BLOOD CULTURE Stat Lab 12/20/23 10:58 Received CBC W DIFF Stat Lab 12/20/23 10:48 Completed CMP Stat Lab 12/20/23 10:48 Completed CULTURE,SPUTUM Stat Lab 12/20/23 10:07 Ordered CULTURE,URINE Stat Lab 12/20/23 10:33 Received LIPASE Stat Lab 12/20/23 10:48 Completed MAGNESIUM Stat Lab 12/20/23 10:48 Completed TROPONIN Q4H Lab 12/20/23 10:48 Completed TROPONIN Q4H Lab 12/20/23 14:15 Ordered TROPONIN Q4H Lab 12/20/23 18:15 Ordered UA W/RFX UR CULTURE Stat Lab 12/20/23 10:33 Completed Respiratory Therapy Assessment DAILY RT 12/20/23 10:50 Active Medication Summary Discontinued Medications Generic Name Dose Route Start Last Admin Trade Name Freq PRN Reason Stop Dose Admin Albuterol Sulfate 2.5 mg 12/20/23 10:20 12/20/23 10:47 Albuterol Sulfate 2.5 Mg/3 Ml Neb IH 12/20/23 10:21 2.5 mg STAT ONE Administration Albuterol Sulfate Confirm 12/20/23 10:27 Albuterol Sulfate 2.5 Mg/3 Ml Neb Administered 12/20/23 10:28 Dose 2.5 mg IH .STK-MED ONE Sodium Chloride 1,000 mls @ 999 mls/hr 12/20/23 10:05 12/20/23 12:05 Sodium Chloride 0.9% 1000 Ml IV 12/20/23 11:05 Infused .Q1H1M STA Infusion Ceftriaxone Sodium 1 gm in 100 mls @ 200 mls/hr 12/20/23 10:06 12/20/23 11:13 Rocephin 1 Gm / 100 Ml Nacl IV 12/20/23 10:35 Not Given STAT ONE Azithromycin 500 mg in 250 mls @ 250 mls/hr 12/20/23 10:06 12/20/23 12:59 Zithromax 500 Mg/ 250 Ml Nacl Premix IV 12/20/23 11:05 Infused STAT STA Infusion Azithromycin Confirm 12/20/23 10:35 Zithromax 500 Mg/ 250 Ml Nacl Premix Administered 12/20/23 10:36 Dose 500 mg in 250 mls @ ud IV .STK-MED ONE Sodium Chloride Confirm 12/20/23 10:35 Sodium Chloride 0.9% 1000 Ml Administered 12/20/23 10:36 Dose 1,000 mls @ ud .ROUTE .STK-MED ONE Ondansetron HCl 4 mg 12/20/23 10:05 12/20/23 10:36 Ondansetron Hcl 4 Mg/2 Ml Vial IV 12/20/23 10:06 4 mg STAT ONE Administration Ondansetron HCl Confirm 12/20/23 10:35 Ondansetron Hcl 4 Mg/2 Ml Vial Administered 12/20/23 10:36 Dose 4 mg .ROUTE .[facility] [place]-MED ONE Lab/Rad Data: Laboratory Result Diagrams 12/20/23 10:48 12/20/23 10:48 Laboratory Results 12/20/23 12/20/23 12/20/23 Range/Units 10:48 10:48 10:48 WBC 3.4 L (3.98-10.04) x10^3/uL RBC 4.02 (3.93-5.22) x10^6/uL Hgb 11.9 (11.2-15.7) g/dL Hct 37.0 (34.1-44.9) % MCV 92.0 (79.4-94.8) fL MCH 29.6 (25.6-32.2) pg MCHC 32.2 (32.2-35.5) g/dL RDW 13.2 (11.7-14.4) % Plt Count 140 L (182-369) x10^3/uL MPV 12.1 (9.4-12.3) fL Gran % 57.0 (34.0-71.1) % Immature Gran % (Auto) 0.3 (0.001-0.429) % Nucleat RBC Rel Count 0.0 (0.00-0.2) % Eos # (Auto) 0.01 L (0.04-0.36) x10^3/uL Immature Gran # (Auto) 0.01 (0.001-0.031) x10^3u/L Absolute Lymphs (auto) 1.09 L (1.18-3.74) x10^3/uL Absolute Monos (auto) 0.35 (0.24-0.86) x10^3/uL Absolute Nucleated RBC 0.00 (0.00-0.012) x10^3u/L Lymphocytes % 31.9 (19.3-51.7) % Monocytes % 10.2 (4.7-12.5) % Eosinophils % 0.3 L (0.7-5.8) % Basophils % 0.3 (0.1-1.2) % Absolute Granulocytes 1.95 (1.56-6.13) x10^3/uL Basophils # 0.01 (0.01-0.08) x10^3/uL Sodium 138 (135-145) mmol/L Potassium 3.6 (3.5-5.1) mmol/L Chloride 105 (98-107) mmol/L Carbon Dioxide 23 (22-30) mmol/L Anion Gap 13.9 (5-15) MEQ/L BUN 17 (7-17) mg/dL Creatinine 0.87 (0.52-1.04) mg/dL Estimated GFR 67.7 ML/MIN Glucose 103 (74-106) mg/dL Calcium 8.5 (8.4-10.2) mg/dL Magnesium 2.4 H (1.6-2.3) mg/dL Total Bilirubin 0.30 (0.2-1.3) mg/dL AST 30 (14-36) U/L ALT 25 (0-35) U/L Alkaline Phosphatase 57 (38-126) U/L Troponin I < 0.012 (0.000-0.033) ng/mL Serum Total Protein 6.9 (6.3-8.2) g/dL Albumin 4.1 (3.5-5.0) g/dL Amylase 83 (30-110) U/L Lipase 144 (23-300) U/L Urine Color (Yellow) Urine Appearance (Clear) Urine pH (4.6-8.0) Ur Specific [place] (1.005-1.030) Urine Protein (Negative) Urine Glucose (UA) (Negative) mg/dL Urine Ketones (Negative) Urine Blood (Negative) Urine Nitrite (Negative) Urine Bilirubin (Negative) Urine Urobilinogen (0.2) mg/dL Ur Leukocyte Esterase (Negative) U Hyaline Cast (Auto) (0-2) /LPF Urine Microscopic RBC (0-5) /HPF Urine Microscopic WBC (0-5) /HPF Ur Epithelial Cells (None Seen) /HPF Urine Bacteria (None Seen) /HPF Urine Culture Reflexed (NO) Influenza Type A Ag (NEGATIVE) Influenza Type B Ag (NEGATIVE) RSV (PCR) (NEGATIVE) SARS-CoV-2 (PCR) (NEGATIVE) Group A Strep Antibody (NEGATIVE) 12/20/23 12/20/23 12/20/23 Range/Units 10:38 10:38 10:33 WBC (3.98-10.04) x10^3/uL RBC (3.93-5.22) x10^6/uL Hgb (11.2-15.7) g/dL Hct (34.1-44.9) % MCV (79.4-94.8) fL MCH (25.6-32.2) pg MCHC (32.2-35.5) g/dL RDW (11.7-14.4) % Plt Count (182-369) x10^3/uL MPV (9.4-12.3) fL Gran % (34.0-71.1) % Immature Gran % (Auto) (0.001-0.429) % Nucleat RBC Rel Count (0.00-0.2) % Eos # (Auto) (0.04-0.36) x10^3/uL Immature Gran # (Auto) (0.001-0.031) x10^3u/L Absolute Lymphs (auto) (1.18-3.74) x10^3/uL Absolute Monos (auto) (0.24-0.86) x10^3/uL Absolute Nucleated RBC (0.00-0.012) x10^3u/L Lymphocytes % (19.3-51.7) % Monocytes % (4.7-12.5) % Eosinophils % (0.7-5.8) % Basophils % (0.1-1.2) % Absolute Granulocytes (1.56-6.13) x10^3/uL Basophils # (0.01-0.08) x10^3/uL Sodium (135-145) mmol/L Potassium (3.5-5.1) mmol/L Chloride (98-107) mmol/L Carbon Dioxide (22-30) mmol/L Anion Gap (5-15) MEQ/L BUN (7-17) mg/dL Creatinine (0.52-1.04) mg/dL Estimated GFR ML/MIN Glucose (74-106) mg/dL Calcium (8.4-10.2) mg/dL Magnesium (1.6-2.3) mg/dL Total Bilirubin (0.2-1.3) mg/dL AST (14-36) U/L ALT (0-35) U/L Alkaline Phosphatase (38-126) U/L Troponin I (0.000-0.033) ng/mL Serum Total Protein (6.3-8.2) g/dL Albumin (3.5-5.0) g/dL Amylase (30-110) U/L Lipase (23-300) U/L Urine Color Yellow (Yellow) Urine Appearance Clear (Clear) Urine pH 5.5 (4.6-8.0) Ur Specific [place] 1.025 (1.005-1.030) Urine Protein Trace A (Negative) Urine Glucose (UA) Negative (Negative) mg/dL Urine Ketones 40 A (Negative) Urine Blood Negative (Negative) Urine Nitrite Negative (Negative) Urine Bilirubin Negative (Negative) Urine Urobilinogen 0.2 (0.2) mg/dL Ur Leukocyte Esterase Trace A (Negative) U Hyaline Cast (Auto) NONE SEEN (0-2) /LPF Urine Microscopic RBC 0-2 (0-5) /HPF Urine Microscopic WBC 3-5 (0-5) /HPF Ur Epithelial Cells None Seen (None Seen) /HPF Urine Bacteria None Seen (None Seen) /HPF Urine Culture Reflexed YES (NO) Influenza Type A Ag NEGATIVE (NEGATIVE) Influenza Type B Ag NEGATIVE (NEGATIVE) RSV (PCR) NEGATIVE (NEGATIVE) SARS-CoV-2 (PCR) POSITIVE A (NEGATIVE) Group A Strep Antibody NOT DETECTED (NEGATIVE) - Progress Progress: unchanged Counseled pt/family regarding: lab results, diagnosis, need for follow-up, rad results Medical Desision Making - Diagnostic Testing Diagnostic test were ordered, analyzed, and reviewed by me: Yes Radiological Interpretation: Teleradiologist Report - Departure Departure Disposition: Home Clinical Impression: COVID-19, Bronchitis Condition: Stable Critical Care Time: No Referrals: OTTONIEL GUPTA MD [Primary Care Provider] - Follow up/PCP as directed Instructions: Cough, Adult (DC), COVID-19 ED Additional Instructions: Follow up with private doctor tomorrow. Self isolate for the next 10 days. Prescriptions: Albuterol 2.5 mg/0.5 ml [PROVENTIL Solution 2.5 MG/0.5 ML] 2.5 mg IH Q4H PRN PRN #1 PRN Reason: Shortness Of Breath/Wheezing Azithromycin 250 mg PO DAILY #4 tablet
[2023-12-20] MEDS ORDERED: PROVENTIL 2.5 MG/3 ML NEB IH ONE (10:27)
[2023-12-20] MEDS ORDERED: Zithromax 500 MG/ 250 ML NaCl Premix 500 MG/250 ML IVPB IV ONE (10:35)
[2023-12-20] MEDS ORDERED: Sodium Chloride 0.9% 1000 ML 1,000 ML ONE (10:35)
[2023-12-20] MEDS ORDERED: Zofran 4 MG/2 ML VIAL ONE (10:35)
[2023-12-20] MEDS: Sodium Chloride 0.9% 1000 ML 1,000 ML IV STA (10:36)
[2023-12-20] MEDS: Zofran 4 MG/2 ML VIAL IV ONE (10:36)
[2023-12-20] MEDS: PROVENTIL 2.5 MG/3 ML NEB IH ONE (10:47)
[2023-12-20 11:10] LABS: Absolute Neutrophil Ct (ANC) 1.95 x10^3/uL (1.56-6.13); BASOPHIL % 0.3 % (0.1-1.2); Basophil (Absolute #) 0.01 x10^3/uL (0.01-0.08); Eosinophil % 0.3 % (0.7-5.8); Eosinophil (Absolute #) 0.01 x10^3/uL (0.04-0.36); Hemoglobin 11.9 g/dL (11.2-15.7); IMMATURE GRAN # 0.01 x10^3u/L (0.001-0.031); IMMATURE GRAN % 0.3 % (0.001-0.429); Lymphocyte (Absolute #) 1.09 x10^3/uL (1.18-3.74); Lymphocytes % 31.9 % (19.3-51.7); Mean Corpuscular Hemoglobin 29.6 pg (25.6-32.2); Mean Corpuscular Hgb Concent. 32.2 g/dL (32.2-35.5); Mean Platelet Volume 12.1 fL (9.4-12.3); Monocyte (Absolute #) 0.35 x10^3/uL (0.24-0.86); Monocytes % 10.2 % (4.7-12.5); Platelet Count 140 x10^3/uL (182-369); Red Blood Count 4.02 x10^6/uL (3.93-5.22); Red Cell Distribution Width 13.2 % (11.7-14.4); White Blood Count 3.4 x10^3/uL (3.98-10.04)
[2023-12-20] MEDS: Zithromax 500 MG/ 250 ML NaCl Premix 500 MG/250 ML IVPB IV STA (11:12)
[2023-12-20] MEDS: ROCEPHIN 1 GM / 100 ML NaCl 1 GM/100 ML IVPB IV ONE (11:13)
[2023-12-20 11:18] LABS: ALBUMIN 4.1 g/dL (3.5-5.0); ANION GAP 13.9 MEQ/L (5-15); BILIRUBIN,TOTAL 0.3 mg/dL (0.2-1.3); Calcium 8.5 mg/dL (8.4-10.2); Creatinine 1 0.87 mg/dL (0.52-1.04); EST GLOMERULAR FILTRATION RATE 67.7 ML/MIN; MAGNESIUM 2.4 mg/dL (1.6-2.3); Potassium 3.6 mmol/L (3.5-5.1); Total Protein 6.9 g/dL (6.3-8.2)
[2023-12-20 11:35] LABS: Appearance Clear (Clear); Bacteria None Seen /HPF (None Seen); Bilirubin Negative (Negative); Blood Negative (Negative); Epithelial Cells None Seen /HPF (None Seen); Glucose, Urine Negative (Negative); Hyaline Casts NONE SEEN /LPF (0-2); Ketones 40 (Negative); Leukocyte Esterase Trace (Negative); Nitrite Negative (Negative); Ph 5.5 (4.6-8.0); Protein,Urine Dip Trace (Negative); RBC 0-2 /HPF (0-5); Specific Gravity 1.025 (1.005-1.030); Urobilinogen 0.2 mg/dL (0.2)
[2023-12-20 11:41] LABS: ADD URINE CULTURE? YES (NO)
[2023-12-20 11:49] LABS: INFLUENZA A NEGATIVE (NEGATIVE); INFLUENZA B NEGATIVE (NEGATIVE); RESPIRATORY SYNCTIAL VIRUS NEGATIVE (NEGATIVE)
[2023-12-20 11:52] LABS: SARS-CoV-2 Xpert Express POSITIVE (NEGATIVE)
--- NOTE | 2023-12-20 12:48 | XRAY ---
CLINICAL HISTORY: shortness of air COMPARISON: prior 11/08/2022 TECHNIQUE: Contiguous 3.[address] images of the chest were acquired with the administration of intravenous contrast (80ml of Isovue 370mg). Coronal and sagittal reconstructions were obtained. One of the following dose reduction techniques was utilized for this exam: Automated exposure control, adjustment of the mA and/or kV according to patient size, and use of iterative reconstruction FINDINGS: Lungs: Right upper and bilateral lower lobar thick atelectatic bands. Otherwise, the Lungs are clear with no evidence of consolidation, collapse, or focal lesions. No ground-glass opacities or interstitial changes. No pleural effusion or pleural thickening. Mediastinum: No mediastinal mass or abnormal lymphadenopathy. Hilar Structures: Normal size and configuration, no enlargement. Heart and Great Vessels: Normal heart size and configuration. No pericardial effusion. Normal caliber and course of the thoracic aorta and other great vessels. Atheromatous calcifications of the thoracic aorta. No aneurysm. Normal enhancement of the great vessels post-contrast. Pulmonary Arteries: No evidence of pulmonary embolism. Normal size and course of the pulmonary arteries. Esophagus: Still noted larger sliding hiatus hernia showing considerable circumferential mural thickening reaching up to 11mm. Bones: Spondyodegenerative changes of the thoracic spine with osteopenic texture. No fractures or lytic/sclerotic lesions. Normal bone density and alignment. No evidence of rib fractures. Chest Wall: No masses or soft tissue abnormalities. Upper Abdomen: Multiple variable-sized left hepatic lobe hypodense focal lesions of fluid density are noted ranging 3 mm to 5 cm along maximum diameters. Hepatic and splenic scattered multiple dense calcifications, likely old granulomatous. A tiny left renal cortical cyst (BOSNAIK I). Thyroid: An Enlarged left thyroid lobe, showing a large hypodense nodule measuring 23 mm along maximum diameters, needs further neck ultrasound evaluation. IMPRESSION: 1. Right upper and bilateral lower lobar thick atelectatic bands, likely old inflammatory sequels(stable). 2. An Enlarged left thyroid lobe, showing a large hypodense nodule measuring 23 mm along maximum diameters, needs further neck ultrasound evaluation (stable). 3. Still noted larger sliding hiatus hernia showing considerable circumferential mural thickening reaching up to 11mm. 4. Multiple variable-sized left hepatic lobe hypodense focal lesions of fluid density are noted ranging 3 mm to 5 cm along maximum diameters, these could be hepatic cysts, and need better assessment by triphasic contrast-enhanced CT study. Electronically Signed by: Stephen Valenzuela MD. (12/20/2023 12:43:25 EDT)
[2023-12-20 13:18] VITALS: BP 126/61; PULSE 76; RESP 15
[2023-12-20 13:24] VITALS: O2SAT 96
== END 2023-12-20 13:47 | disposition home or self-care (01) ==
LOC: ED 08:18
DX: U07.1 COVID-19 (principal); J40 Bronchitis, not specified as acute or chronic; R05.1 Acute cough; R11.0 Nausea; M79.10 Myalgia, unspecified site; J02.9 Acute pharyngitis, unspecified; H92.01 Otalgia, right ear; R51.9 Headache, unspecified; R50.9 Fever, unspecified; E78.5 Hyperlipidemia, unspecified; I10 Essential (primary) hypertension; Z79.899 Other long term (current) drug therapy
CPT/HCPCS: 0241U; 36000; 36415; 71260; 80053; 81001; 82150; 83690; 83735; 84484; 85025; 87040; 87086; 87651; 93005; 93041; 94640; 94760; 96360; 96365; 96374; 99285; J0456; J2405; J7609; A9270-GY